=== PATIENT | male | born 1995 | race Caucasian/White ===

== ENCOUNTER 2021-04-20 10:22 | Emergency (ER) | payer BC, SELFPAY ==
--- NOTE | ~2021-04-20 | XR_ITS ---
EXAMINATION: XR CHEST CLINICAL INFORMATION: Shortness of breath COMPARISON: None TECHNIQUE: Frontal view of the chest was obtained. FINDINGS: No significant abnormality is noted involving the heart, lungs, mediastinum, bony thorax or soft tissues. XR/XR chest 1V IMPRESSION: Unremarkable examination.
[2021-04-20 10:51] VITALS: BP 180/104; PULSE 113; RESP 18; TEMP 36.7; O2SAT 98; BMI 40.6
--- NOTE | 2021-04-20 10:56 | ED.GENADULT ---
HPI - General Adult General Chief complaint: General Medical Stated complaint: hbp Time Seen by Provider: 04/20/21 10:55 Source: patient Mode of arrival: ambulatory Limitations: no limitations History of Present Illness HPI narrative: 25-year-old male past medical history significant for hypertension presents to the emergency department after being sent from Urgent Care for hypertension. He states he went to urgent care because he was having shortness of breath, runny nose, congestion, facial pressure X1 week. He states that they did a COVID test and took vital signs in the told them that he was COVID negative but his blood pressure was very high so he had to report to an emergency department. According to patient he used to be on hypertension medications when he was in the , however he never continued with these medications. He does not have a PCP. He denies headache, dizziness, vision changes, nausea, vomiting, abdominal pain, weakness. Onset (ago): week(s) (1) Radiation: non-radiation Severity: mild Quality: constant Relieving factors: none Exacerbating factors: none Associated symptoms: shortness of breath and other (rhinnorea, congestion ) Treatments prior to arrival: none Related Data Allergies Allergy/AdvReac Type Severity Reaction Status Date / Time No Known Allergies Allergy Unverified 02/20/20 17:11 [No Known Allergies*] Review of Systems Review of Systems: Constitutional : No Weight loss, No Fever, No Chills, No Fatigue, No Malaise ENT/Mouth : No sore throat, + Rhinorrhea, + facial pressure, +congestion Eyes: No Eye Pain, No Swelling, No Redness Cardiovascular : No Chest Pain, + SOB, No Dyspnea on Exertion, No Orthopnea, No Edema, No Palpitations Respiratory : No Cough, No Sputum, No Wheezing Gastrointestinal : No Nausea, No Vomiting, No Diarrhea, No Constipation, No abdominal Pain, No Hematochezia, No Melena Genitourinary : No Dysuria, No Urinary Frequency, No Hematuria, Musculoskeletal : No joint pain, No Myalgias, No Joint Swelling Skin : No Skin Lesions, No rash Neuro : No Weakness, No Numbness, No Dizziness, No Headache All other systems reviewed and are negative PMFSH Past Medical History Attestation statement: The following information was validated with the patient. Source: old records reviewed and nursing notes reviewed Social History Social History Advance Directives: No Advance Directives Information Provided: No Physical Exam Vital Signs: Vital Signs: Last Vital Signs Temp 98.0 F 04/20/21 10:51 Pulse 106 H 04/20/21 11:53 Resp 18 04/20/21 10:51 BP 151/95 H 04/20/21 11:53 Pulse Ox 98 04/20/21 10:51 Body Mass Index 40.6 Appearance: Alert.? Oriented X3.? No acute distress.? Head: Normocephalic, atraumatic, no step-offs or deformities Eyes: Pupils equal, round and reactive to light.? ENT: Pharynx normal.? Neck: Normal inspection.? Neck supple.? CVS: Normal heart rate and rhythm.? Pulses normal.? Respiratory: No respiratory distress.? + faint crackles to bilateral lower lobes Abdomen: Soft and nontender.? Skin: Skin warm and dry.? Normal skin color.? Normal skin turgor.? Extremities: No lower extremity edema.? No calf ttp. 5/5 strength to bilateral upper and lower extremities Back: No midline tenderness, no C-spine tenderness, full range of motion, no CVA tenderness bilaterally Neuro: Oriented X 3.? No motor deficit.? No sensory deficit. Course Reevaluation(s) Reevaluation #1: Chest x-ray negative. Flu/COVID/RSV pending. Patient continues to saturate 98% on room air. He appears comfortable and in no distress. I repeated BP it was 151/95. Time: 11:32 Reevaluation #2: Initial nasal swab could not be ran, a repeat nasal swab was done. At this time patient is safe for discharge home and will call him with positive results this is likely an upper respiratory infection. Chest x-ray was normal, pneumonia was ruled out. He has been advised that if it is flu/COVID/RSV he should quarantine. I have also told him to return to the emergency department with new or worsening symptoms. Time: 13:43 Medical Decision Making MDM Narrative Medical decision making narrative: [id number] 25-year-old male past medical history significant for hypertension presents the emergency department from urgent care where they were concerned for his blood pressure (150s/100s). Patient states he went to urgent care to get tested because he was experiencing upper respiratory symptoms times a week. He tested negative for COVID. He tells me that he used to be on hypertension medications when he was in the however he has not been taking them for a long time now. He denies vision changes, headache, dizziness, chest pain Upon physical examination there are faint crackles appreciated in bilateral lower lobes, S1-S2 appreciated, abdomen soft nontender nondistended. 5/5 strength upper and lower extremities. No focal neuro deficits. Pupils equal round and reactive to light. No pain with facial percussion or palpation. Negative bend over facial pressure. Patient appears well, he is in no acute distress. Vital signs are stable however he is hypertensive here in the emergency department his blood pressure is 180/104 his pulse was 113. Patient does mention he is a little nervous, anxious about his blood pressure. Plan at this time is to obtain a chest x-ray, flu/COVID/RSV. Imaging Data Chest x-ray: Attestation: I personally reviewed and interpreted this imaging study as follows: Radiologist's impression: FINDINGS: No significant abnormality is noted involving the heart, lungs, mediastinum, bony thorax or soft tissues. XR/XR chest 1V IMPRESSION: Unremarkable examination. Critical Care Time Critical Care Time Critical Care Time: No Discharge Plan Discharge Clinical Impression: Hypertension, Upper respiratory infection Patient Disposition: Home, Self-Care Instructions: Upper Respiratory Infection (ED), DASH Eating Plan (ED), Hypertension (ED) Additional Instructions: Drink plenty of fluids. Try to avoid caffeine, energy drinks, pre workout. Follow DASH diet low salts. Record your blood pressures a few times a week (monday, monday, monday in the morning), and share these with your primary care provider. I know you do not currently have a primary care provider however, I have given you a list of providers in the area that you think on making appointment with. Follow-up with your primary care provider this week. Return to the emergency department with new or worsening symptoms. In case of emergency call 911 Flu/COVID/RSV pending will call you only if results are positive. Referrals: Physician,None [Primary Care Provider] - 2 days Stand Alone Forms: Work/School Release
[2021-04-20 11:21] VITALS: BP 204/115; PULSE 111
[2021-04-20 11:53] VITALS: BP 151/95; PULSE 106
[2021-04-20] MEDS: Acetaminophen 325 MG TABLET 650 MG PO (14:08)
[2021-04-20 14:41] LABS: Influenza A PCR NEGATIVE (Negative); Influenza B PCR NEGATIVE (Negative); Resp Syncy Virus RNA Qual PCR NEGATIVE (Negative); SARS COV2 PCR INHOUSE NEGATIVE (Negative)
== END 2021-04-20 14:09 | disposition home or self-care (01) ==
LOC: HO.ED 11:22
PROVIDERS: Physician Assistant; Emergency Provider Emergency Medicine Emergency Medical Services
DX: J06.9 Acute upper respiratory infection, unspecified (principal); I10 Essential (primary) hypertension; Z20.822 Contact with and (suspected) exposure to COVID-19; Z79.899 Other long term (current) drug therapy
CPT/HCPCS: 0241U; 36415; 71045; 99283

== ENCOUNTER 2021-05-05 10:15 | Outpatient (REF) | payer BC, SELFPAY ==
[2021-05-05 10:33] LABS: MANUAL DIFF FLAG NO
[2021-05-05 10:43] LABS: Basophils Percent Auto 0.3 % (0-2); Eosinophils Absolute Auto 0.2 X10*3/uL (0.0-0.4); Eosinophils Percent Auto 2.3 % (0-4); Hematocrit 46.9 % (42.0-52.0); Hemoglobin 15.9 g/dl (14.0-18.0); Imm Gran Abs Auto 0.06 X10*3/uL (0.00-0.03); Imm Gran Pct Auto 0.7 % (0.0-0.4); Lymphocytes Absolute Auto 2.4 X10*3/uL (1.2-4.9); Lymphocytes Percent Auto 26.4 % (20-40); Mean Corpuscular HGB Conc 33.9 g/dl (31.0-36.0); Mean Corpuscular Hemoglobin 28.4 pg (27.0-33.0); Mean Corpuscular Volume 83.8 fL (80.0-98.0); Mean Platelet Volume 9.7 fL (9.4-12.4); Monocytes Absolute Auto 0.5 X10*3/uL (0.1-1.2); Monocytes Percent Auto 5.1 % (2-11); Neutrophils Percent Auto 65.2 % (45-73); Platelet Count 267 X10*3/uL (160-400); White Blood Count 9.1 X10*3/uL (4.8-10.8)
[2021-05-05 11:12] LABS: Alanine Aminotransferase 36 U/L (0-40); Albumin Level 4.6 g/dL (3.5-5.0); Alkaline Phosphatase 104 U/L (39-117); Anion Gap 16 (12-20); Aspartate Amino Transferase 23 U/L (5-37); Bilirubin Total 0.5 mg/dL (0.0-1.0); Blood Urea Nitrogen 8 mg/dL (9-16); Calcium 9.6 mg/dL (8.4-10.2); Carbon Dioxide 25 mmol/L (22-29); Chloride 103 mmol/L (96-108); Cholesterol 248 mg/dL; Estimated Glomerular Filt Rate > 60; Glucose Random 109 mg/dL (60-115); HDL Cholesterol 32 mg/dL; LDL Cholesterol Calculated 178 mg/dl; Potassium 4.1 mmol/L (3.3-5.1); Sodium 140 mmol/L (135-145); Total Protein 7.6 g/dL (6.5-8.0); Triglycerides 192 mg/dL
[2021-05-05 11:32] LABS: ~HepC Num1 0.04 S/CO (0.00-0.79); ~Hepatitis C Antibody Nonreactive (Nonreactive)
[2021-05-05 11:34] LABS: HIV AB/AG Nonreactive (Nonreactive); HIV Num 1 0.04 S/CO (0.00-0.99)
== END 2021-05-05 10:16 | disposition home or self-care (01) ==
LOC: HO.LAB 10:15
PROVIDERS: PCP Family Medicine; Visit Provider Family Medicine
DX: Z11.4 Encounter for screening for human immunodeficiency virus [HIV] (principal); Z11.59 Encounter for screening for other viral diseases; I10 Essential (primary) hypertension
CPT/HCPCS: 36415; 80053; 80061; 85025; 86803; 87389

== ENCOUNTER 2021-07-16 13:00 | Emergency (ER) | payer BC, SELFPAY ==
--- NOTE | ~2021-07-16 | CT_ITS ---
EXAMINATION: CT ABDOMEN AND PELVIS WITH CONTRAST CLINICAL INFORMATION: Left flank pain COMPARISON: None TECHNIQUE: Multidetector volumetric images were obtained from the superior aspect of the liver through the pubic symphysis following administration 85 mL of Omnipaque 350 intravenous contrast. Sagittal and coronal reformatted images were obtained on the technologist's workstation. Oral contrast: Yes This CT examination was performed using dose optimization techniques as appropriate, variously including the following: *Automated exposure control *Adjustment of mA and/or kV according to patient size (this includes techniques or standardized protocols for targeted exams where dose is matched to indication/reason for exam; i.e. extremities or head) *Use of iterative reconstruction technique DLP: 1194 mGy-cm FINDINGS: LUNG BASES: The visualized lung bases are unremarkable. LIVER, GALLBLADDER, AND BILIARY TREE: The liver is normal in size and shape. There is mild fatty infiltration of the liver. No focal hepatic lesion or biliary ductal dilatation is present. The gallbladder is unremarkable with no evidence of radiopaque gallstones, gallbladder wall thickening, or obvious pericholecystic inflammatory changes. PANCREAS: Unremarkable. SPLEEN: Unremarkable. ADRENAL GLANDS: Unremarkable. KIDNEYS AND URETERS: There is a 2 mm stone in the lower pole of the left kidney. The kidneys are otherwise unremarkable. No hydronephrosis is seen. No ureteral dilatation is seen. There is a small 2 to 3 mm stone in the bladder/left UVJ region. BLADDER: Small 2 to 3 mm left bladder stone. GASTROINTESTINAL TRACT: Mild diverticulosis of the colon. No evidence of diverticulitis. The small and large bowel are otherwise unremarkable. The appendix is unremarkable. ABDOMINAL WALL: Small umbilical hernia containing fat. LYMPH NODES: Normal. VASCULAR: Unremarkable. PELVIC VISCERA: Unremarkable. OSSEOUS STRUCTURES: Unremarkable. CT/CT abdomen pelvis w con IMPRESSION: Small 2 x 3 mm left UVJ or bladder stone. Small nonobstructing left renal stone. No hydronephrosis or ureteral dilatation. Fatty liver. Mild diverticulosis. Small umbilical hernia containing fat. Fleischner guidelines were followed.
[2021-07-16 13:57] VITALS: BP 137/81; PULSE 115; RESP 18; TEMP 36.1; O2SAT 95; BMI 44.0
[2021-07-16 14:18] LABS: MANUAL DIFF FLAG NO
[2021-07-16 14:23] LABS: Basophils Percent Auto 0.3 % (0-2); Eosinophils Absolute Auto 0.1 X10*3/uL (0.0-0.4); Hematocrit 42.1 % (42.0-52.0); Hemoglobin 14.5 g/dl (14.0-18.0); Imm Gran Pct Auto 0.9 % (0.0-0.4); Mean Corpuscular HGB Conc 34.4 g/dl (31.0-36.0); Mean Corpuscular Hemoglobin 28.3 pg (27.0-33.0); Mean Corpuscular Volume 82.2 fL (80.0-98.0); Mean Platelet Volume 9.8 fL (9.4-12.4); Monocytes Absolute Auto 0.7 X10*3/uL (0.1-1.2); Monocytes Percent Auto 6.1 % (2-11); Neutrophils Absolute Auto 8.1 x10*3/uL (2.0-8.3); Neutrophils Percent Auto 73.7 % (45-73); Platelet Count 275 X10*3/uL (160-400); Red Blood Count 5.12 X10*6/uL (4.60-5.80); Red Cell Distribution Width 12.8 % (11.0-16.0)
[2021-07-16 14:24] LABS: Appearance Urine HAZY; Color Urine YELLOW; Glucose Urine UA NEG (NEG); Leukocyte Esterase Urine 1+ (NEG); Nitrite Urine NEG (NEG); Specific Gravity - Urine 1.025 (1.005-1.025); UACC Culture Trigger YES; Urine Blood 3+ (NEG); Urine Ketones 5 MG/DL (NEG); Urine Protein TRACE MG/DL (NEG-TRACE)
[2021-07-16 14:36] LABS: Alanine Aminotransferase 49 U/L (0-40); Albumin Level 4.6 g/dL (3.5-5.0); Alkaline Phosphatase 106 U/L (39-117); Anion Gap 17 (12-20); Aspartate Amino Transferase 28 U/L (5-37); Bilirubin Total 0.4 mg/dL (0.0-1.0); Blood Urea Nitrogen 11 mg/dL (9-16); Calcium 9.8 mg/dL (8.4-10.2); Carbon Dioxide 24 mmol/L (22-29); Chloride 104 mmol/L (96-108); Creatinine Clr Calc Pharmacy 167.2; Estimated Glomerular Filt Rate > 60; Glucose Random 113 mg/dL (60-115); Potassium 3.6 mmol/L (3.3-5.1); Sodium 141 mmol/L (135-145); Total Protein 7.6 g/dL (6.5-8.0)
[2021-07-16 14:41] LABS: RBC Urine 30-49 /HPF (0); Squamous Epithelial Cell Urine 1+ /LPF
[2021-07-16 14:42] LABS: Calcium Oxalate Crystals Urine TRACE /LPF
[2021-07-16 14:49] VITALS: RESP 17
[2021-07-16] MEDS: Morphine Sulfate 4 MG/ML CARTRIDGE IVPUSH (14:49)
[2021-07-16] MEDS: ondansetron HCL 4 MG/2 ML VIAL IVPUSH (14:49)
[2021-07-16] MEDS: 0.9 % Sodium Chloride 1,000 ML 999 ML IV (14:50)
[2021-07-16] MEDS: iohexoL 350 MG/ML 100 ML INFUS..BTL IV (15:13)
[2021-07-16 15:37] VITALS: RESP 18
--- NOTE | 2021-07-16 16:40 | ED_ITS ---
HPI - Abdominal Pain General Chief Complaint: Abdominal Pain Stated Complaint: LOWER L BACK PAIN Time Seen by Provider: 07/16/21 14:05 Source: patient Mode of arrival: ambulatory Limitations: no limitations History of Present Illness HPI narrative: 25-year-old male with left flank pain that began at 11:30. Patient works a computer technology trainer, and he was napping, pain was sudden and woke him up. He vomited from the pain. He feels crampy in his lower abdomen. The pain is constant, and worsening. He was crying due to pain. Pain was 8/10, is now a 6/10. Denies testicular pain. Denies dysuria, hematuria, fever, abnormal bowel movements, abdominal surgeries. No prior history of kidney stone. Patient is vaccinated for COVID. Related Data Previous Rx's Medication Instructions Recorded ketorolac 10 mg tablet 10 mg PO TID 5 Days #15 tab 07/16/21 ketorolac 10 mg tablet 10 mg PO TID 5 Days #15 tab 07/16/21 levofloxacin 750 mg tablet 750 mg PO DAILY 5 Days #5 tab 07/16/21 levofloxacin 750 mg tablet 750 mg PO DAILY 5 Days #5 tab 07/16/21 ondansetron 4 mg disintegrating 4 mg PO Q8H PRN #9 tab 07/16/21 tablet prednisone 20 mg tablet 20 mg PO DAILY 3 Days #3 tab 07/16/21 prednisone 20 mg tablet 20 mg PO DAILY 3 Days #3 tab 07/16/21 tamsulosin 0.4 mg capsule 0.4 mg PO DAILY 14 Days #14 cap 07/16/21 tamsulosin 0.4 mg capsule 0.4 mg PO DAILY 14 Days #14 cap 07/16/21 Allergies Allergy/AdvReac Type Severity Reaction Status Date / Time No Known Allergies Allergy Verified 07/16/21 13:59 [No Known Allergies*] Review of Systems Constitutional: Denies body ache(s), Denies chills, Denies fatigue, Denies fever(s), Denies headache(s), Denies malaise and Denies weakness Eyes: Denies diplopia Denies vertigo, Denies dizziness, Denies headache(s) and Denies throat swelling Cardiovascular: Denies chest pain, Denies syncope, Denies leg edema, Denies lightheadedness, Denies Loss of Consciousness, Denies palpitations and Denies dyspnea Respiratory: Denies chest congestion, Denies cough and Denies dyspnea Gastrointestinal: Reports abdominal pain, Denies hematochezia, Denies tenesmus, Denies coffee ground emesis, Denies constipation, Denies fecal incontinence, Denies diarrhea, Reports nausea and Reports vomiting Genitourinary: Denies hematuria, Denies genital pain, Denies dysuria, Reports flank pain, Denies penile discharge, Denies scrotal swelling, Denies testicular mass, Denies testicular pain, Denies urinary frequency, Denies urinary incontinence and Denies urinary urgency Musculoskeletal: Reports no additional musculoskeletal complaints Denies confusion, Denies vertigo, Denies dizziness, Denies syncope, Denies headache(s) and Denies weakness Psychiatric: Denies anxiety, Denies confusion and Denies depression Endocrine: Denies fatigue and Denies palpitations Allergic/Immunologic: Denies throat swelling Physical Exam Vital Signs: Vital Signs: Last Vital Signs Temp 97.0 F 07/16/21 13:57 Pulse 115 H 07/16/21 13:57 Resp 18 07/16/21 15:37 BP 137/81 07/16/21 13:57 Pulse Ox 95 07/16/21 13:57 BMI result Body Mass Index 44.0 Const: General: No confusion Nutritional Appearance: well nourished Orientation/consciousness: No confusion Limitations: no limitations Eyes: Conjunctivae: conjunctivae normal Pupils: Equal, round and reactive pupils present EOM: EOMs intact bilaterally Neck: Neck: Yes full ROM, Yes no lymphadenopathy and Yes supple Resp: Effort & Inspection: normal respiratory effort and able to speak in complete sentences Auscultation: clear to auscultation bilaterally, no crackles, no rales, no rhonchi and no wheezes Cardio: Rate: regular rate Rhythm: regular rhythm Heart sounds: S1 normal heart sound present and S2 normal heart sound present GI: Inspection: Yes normal to inspection Palpation (GI): Soft to palpation, Tenderness to palpation present (GI) (lower abdomen), no guarding and not rigid Percussion: Yes normal to percussion Auscultation: normal bowel sounds : General: Yes CVA tenderness on the left Back/Spine/Pelvis: Back: CVA tenderness Skin: General skin exam: no rashes or lesions noted Neuro: General: No confusion Cranial nerves: Yes Equal, round and reactive pupils present Extrem: General: Yes normal to inspection and Yes full ROM Psych: Appearance: grossly normal Affect: normal affect Attitude: cooperative Thought process: Normal thought process present Course Course Course Narrative: 25-year-old male with left flank pain that started today. On exam, patient has mild left-sided CVA tenderness, labs showed leukocytosis of 11, urine shows leukocyte esterase. CT shows nonobstructing 2 x 3 mm stone in the left UVJ, no hydronephrosis not, no perinephro fat stranding. Will treat UTI with Levaquin, gave ketorolac, prednisone, Flomax, Zofran, referred to Urology Gave return precautions of worsening flank pain, fevers, vomiting A patient's questions were answered, patient verbalized agreement understanding of the plan. CT/CT abdomen pelvis w con IMPRESSION: Small 2 x 3 mm left UVJ or bladder stone. Small nonobstructing left renal stone. No hydronephrosis or ureteral dilatation. Fatty liver. Mild diverticulosis. Small umbilical hernia containing fat. MDM - Abdominal Pain Lab Data Result diagrams: 07/16/21 14:09 07/16/21 14:09 Labs: Lab Results 07/16/21 07/16/21 07/16/21 Range/Units 14:09 14:09 14:09 WBC 11.0 H (4.8-10.8) X10*3/uL RBC 5.12 (4.60-5.80) X10*6/uL Hgb 14.5 (14.0-18.0) g/dl Hct 42.1 (42.0-52.0) % MCV 82.2 (80.0-98.0) fL MCH 28.3 (27.0-33.0) pg MCHC 34.4 (31.0-36.0) g/dl RDW 12.8 (11.0-16.0) % Plt Count 275 (160-400) X10*3/uL MPV 9.8 (9.4-12.4) fL Immature Gran % (Auto) 0.9 H (0.0-0.4) % Neut % (Auto) 73.7 H (45-73) % Lymph % (Auto) 18.0 L (20-40) % [place] % (Auto) 6.1 (2-11) % Eos % (Auto) 1.0 (0-4) % Baso % (Auto) 0.3 (0-2) % Lymph # (Auto) 2.0 (1.2-4.9) X10*3/uL [place] # (Auto) 0.7 (0.1-1.2) X10*3/uL Eos # (Auto) 0.1 (0.0-0.4) X10*3/uL Baso # (Auto) 0.0 (0.0-0.2) X10*3/uL Abs Immat Gran (auto) 0.10 H (0.00-0.03) X10*3/uL Absolute Neuts (auto) 8.1 (2.0-8.3) x10*3/uL Absolute Nucleated RBC 0.000 (0.0-0.012) X10*3/uL Nucleated RBC % (auto) 0.0 (0.0-0.2) /100WBC Sodium 141 (135-145) mmol/L Potassium 3.6 (3.3-5.1) mmol/L Chloride 104 (96-108) mmol/L Carbon Dioxide 24 (22-29) mmol/L Anion Gap 17 (12-20) BUN 11 (9-16) mg/dL Creatinine 0.99 (0.5-1.4) mg/dL Estim Creat Clear Calc 167.2 Estimated GFR > 60 Random Glucose 113 (60-115) mg/dL Calcium 9.8 (8.4-10.2) mg/dL Total Bilirubin 0.4 (0.0-1.0) mg/dL AST 28 (5-37) U/L ALT 49 H (0-40) U/L Alkaline Phosphatase 106 (39-117) U/L Total Protein 7.6 (6.5-8.0) g/dL Albumin 4.6 (3.5-5.0) g/dL Urine Color YELLOW Urine Appearance HAZY Urine pH 6.0 (5.0-8.0) Ur Specific [place] 1.025 (1.005-1.025) Urine Protein TRACE (NEG-TRACE) MG/DL Urine Glucose (UA) NEG (NEG) MG/DL Urine Ketones 5 (NEG) MG/DL Urine Blood 3+ H (NEG) Urine Nitrite NEG (NEG) Ur Leukocyte Esterase 1+ H (NEG) Urine RBC 30-49 H (0) /HPF Urine WBC 1-4 (0-4) /HPF Ur Squamous Epith Cells 1+ /LPF Calcium Oxalate Crystal TRACE /LPF Urine Bacteria NONE /LPF Urine Mucus NONE /LPF Discharge Plan Discharge Clinical Impression: Calculus of kidney, Acute UTI Patient Disposition: Home, Self-Care Instructions: Kidney Stones (ED), How to Strain Your Urine (ED) Additional Instructions: Please call Urology Monday morning at the following phone number: [phone] Please fill your spur prescription for Levaquin, this is your antibiotic. You will also be receiving ketorolac, this is the pain medication that is like ibuprofen. Do not take any ibuprofen containing products when you are taking it. You also receive Tamulosin, this is the old man medicine we discussed, will help you urinate. You will also receive ondansetron, this is to be used for nausea. You also received a prescription for 3 days of prednisone, this is another anti-inflammatory. If you have worsening flank pain, fevers, vomiting, please return to the emergency room. Prescriptions: New prednisone 20 mg tablet 20 mg PO DAILY 3 Days Qty: 3 0RF ketorolac 10 mg tablet 10 mg PO TID 5 Days Qty: 15 0RF tamsulosin 0.4 mg capsule 0.4 mg PO DAILY 14 Days Qty: 14 0RF levofloxacin 750 mg tablet 750 mg PO DAILY 5 Days Qty: 5 0RF prednisone 20 mg tablet 20 mg PO DAILY 3 Days Qty: 3 0RF ondansetron 4 mg tablet,disintegrating 4 mg PO Q8H PRN (Reason: nausea and vomiting) Qty: 9 0RF tamsulosin 0.4 mg capsule 0.4 mg PO DAILY 14 Days Qty: 14 0RF ketorolac 10 mg tablet 10 mg PO TID 5 Days Qty: 15 0RF levofloxacin 750 mg tablet 750 mg PO DAILY 5 Days Qty: 5 0RF Referrals: Osiel Glynn MD [Physician] - 2 days [facility] Past Medical History Medical History (Updated 07/16/21 @ 16:55 by SHEA Cope) High blood pressure Social History Social History Advance Directives: No Advance Directives Information Provided: No
[2021-07-16] MEDS: Ketorolac Tromethamine 15 MG/ML VIAL IVPUSH (17:00)
== END 2021-07-16 17:13 | disposition home or self-care (01) ==
PROVIDERS: Emergency Provider Emergency Medicine Emergency Medical Services; PCP Family Medicine
DX: N20.0 Calculus of kidney (principal); N39.0 Urinary tract infection, site not specified; R10.9 Unspecified abdominal pain
CPT/HCPCS: 36415; 74177; 80053; 81001; 85025; 87086; 96361; 96374; 96375; 99283; 99284; J1885; J2270; J2405; Q9967

== ENCOUNTER 2023-10-11 08:03 | Outpatient (REF) | payer BC, SELFPAY ==
[2023-10-11 08:12] LABS: MANUAL DIFF FLAG NO
[2023-10-11 08:30] LABS: Basophils Absolute Auto 0.1 X10*3/uL (0.0-0.2); Basophils Percent Auto 0.7 % (0-2); Eosinophils Absolute Auto 0.3 X10*3/uL (0.0-0.4); Hematocrit 46.4 % (42.0-52.0); Hemoglobin 15.9 g/dl (14.0-18.0); Imm Gran Abs Auto 0.08 X10*3/uL (0.00-0.03); Imm Gran Pct Auto 0.9 % (0.0-0.4); Lymphocytes Absolute Auto 2.7 X10*3/uL (1.2-4.9); Lymphocytes Percent Auto 29.8 % (20-40); Mean Corpuscular HGB Conc 34.3 g/dl (31.0-36.0); Mean Corpuscular Hemoglobin 28.9 pg (27.0-33.0); Mean Corpuscular Volume 84.2 fL (80.0-98.0); Mean Platelet Volume 10.3 fL (9.4-12.4); Monocytes Absolute Auto 0.5 X10*3/uL (0.1-1.2); Monocytes Percent Auto 5.4 % (2-11); Neutrophils Absolute Auto 5.5 x10*3/uL (2.0-8.3); Neutrophils Percent Auto 60.2 % (45-73); Platelet Count 256 X10*3/uL (160-400); Red Blood Count 5.51 X10*6/uL (4.60-5.80); Red Cell Distribution Width 12.8 % (11.0-16.0); White Blood Count 9.1 X10*3/uL (4.8-10.8)
[2023-10-11 09:19] LABS: Alanine Aminotransferase 43 U/L (0-40); Albumin Level 4.5 g/dL (3.5-5.0); Alkaline Phosphatase 108 U/L (39-117); Anion Gap 16 (12-20); Aspartate Amino Transferase 31 U/L (5-37); Bilirubin Total 0.3 mg/dL (0.0-1.0); Blood Urea Nitrogen 7 mg/dL (9-16); Calcium 9.2 mg/dL (8.4-10.2); Carbon Dioxide 25 mmol/L (22-29); Chloride 103 mmol/L (96-108); Cholesterol 214 mg/dL (<200); Estimated Glomerular Filt Rate > 60; Glucose Random 115 mg/dL (60-115); HDL Cholesterol 33 mg/dL (>40); LDL Cholesterol Calculated 133 mg/dL (<100); Potassium 3.4 mmol/L (3.3-5.1); Sodium 141 mmol/L (135-145); Total Protein 7.7 g/dL (6.5-8.0); Triglycerides 244 mg/dL (<150)
[2023-10-11 09:35] LABS: Thyroid Stimulating Hormone 1.66 uIU/mL (0.32-4.0)
[2023-10-15 17:33] LABS: Testosterone, Free 81.2 pg/mL (35.0-155.0); Testosterone, Total 682 ng/dL (250-1100)
== END 2023-10-11 08:04 | disposition home or self-care (01) ==
LOC: HO.LAB 08:03
PROVIDERS: Visit Provider Family Medicine
DX: E78.00 Pure hypercholesterolemia, unspecified (principal); R53.81 Other malaise; R53.83 Other fatigue
CPT/HCPCS: 36415; 80053; 80061; 84402; 84403; 84443; 85025

== ENCOUNTER 2023-12-01 20:38 | Emergency (ER) | payer BC, SELFPAY ==
--- NOTE | ~2023-12-01 | CT_ITS ---
EXAMINATION: CT HEAD WITHOUT CONTRAST CLINICAL INFORMATION: Accelerated hypertension. Headache. COMPARISON: None available. TECHNIQUE: Contiguous axial imaging was performed from the skull base to vertex without intravenous administration of contrast. This CT examination was performed using dose optimization techniques as appropriate, variously including the following: *Automated exposure control *Adjustment of mA and/or kV according to patient size (this includes techniques or standardized protocols for targeted exams where dose is matched to indication/reason for exam; i.e. extremities or head) *Use of iterative reconstruction technique DLP: 972 mGy-cm FINDINGS: There is no acute intracranial hemorrhage. There is no evidence of acute/subacute cerebral or cerebellar infarction. There is no midline shift or mass effect. No extra-axial fluid collection. The ventricles are normal in size. The orbits are symmetric and within normal limits. The visualized paranasal sinuses are well aerated. The mastoid air cells are clear. CT/CT head/brain wo IV con IMPRESSION: No acute intracranial pathology.
[2023-12-01 20:40] VITALS: BP 171/109; PULSE 114; RESP 18; TEMP 36.9; O2SAT 96; BMI 45.4
--- NOTE | 2023-12-01 20:45 | ED.GENADULT ---
HPI - General Adult General Chief complaint: General Medical Stated complaint: Hypertension, sent by work Time Seen by Provider: 12/01/23 21:15 Source: patient Mode of arrival: ambulatory Limitations: no limitations History of Present Illness ED Provider: stacie NAVARRO narrative: Patient with History of hypertension for last 3 -4 years taking amlodipine 10 mg daily patient missed the dose yesterday complaining of occipital headache since 19:00 no nausea no vomiting no chest pain feels beating fast and stronger no change in sensorium patient has checked his blood pressure at work was 180/124 on arrival it is 160/115 patient also does have questionable sleep apnea pending studies Related Data Previous Rx's ?Medication ?Instructions ?Recorded ketorolac 10 mg tablet 10 mg PO TID 5 days #15 tabs 07/16/21 ketorolac 10 mg tablet 10 mg PO TID pain 5 days #15 tabs 07/16/21 levofloxacin 750 mg tablet 750 mg PO DAILY 5 days #5 tabs 07/16/21 levofloxacin 750 mg tablet 750 mg PO DAILY 5 days #5 tabs 07/16/21 ondansetron 4 mg disintegrating 4 mg PO Q8H PRN nausea and 07/16/21 tablet vomiting #9 tabs prednisone 20 mg tablet 20 mg PO DAILY 3 days #3 tabs 07/16/21 prednisone 20 mg tablet 20 mg PO DAILY 3 days #3 tabs 07/16/21 tamsulosin 0.4 mg capsule 0.4 mg PO DAILY 14 days #14 caps 07/16/21 tamsulosin 0.4 mg capsule 0.4 mg PO DAILY 14 days #14 caps 07/16/21 Allergies Allergy/AdvReac Type Severity Reaction Status Date / Time No Known Allergies Allergy Verified 12/01/23 20:44 [No Known Allergies*] Review of Systems Review of Systems: Yes all other systems are reviewed and are negative PMFSH Past Medical History Medical History High blood pressure Social History Social History Advance Directives: No Advance Directives Information Provided: No Do you have a plan to hurt others: No Plan Physical Exam ED Vital Signs: Vital Signs - 24 hr 12/01/23 20:40 12/01/23 21:04 12/01/23 21:37 Temperature 98.5 F 98.7 F Pulse Rate 114 H 116 H 112 H Respiratory Rate 18 14 Blood Pressure 171/109 H 160/115 H 167/112 H Pulse Oximetry 96 97 Oxygen Delivery Method Room Air Room Air 12/01/23 21:37 Temperature Pulse Rate Respiratory Rate Blood Pressure 167/112 H Pulse Oximetry Oxygen Delivery Method BMI result Body Mass Index 45.4 Appearance: Alert. Oriented X3. No acute distress. Eyes: PERRLA, No Nystagmus ENT: Pharynx normal. Oral Mucosa moist Neck: Normal inspection. Neck supple. CVS: Normal heart rate and rhythm. Pulses normal. Respiratory: No respiratory distress. Equal air entry bilateral, no wheezing/rales/rhonchi Abdomen: Soft and nontender. Bowel sounds are present, no mass palpable, no CVA tenderness Skin: Skin warm and dry. Normal skin color. Normal skin turgor. Extremities: No lower extremity edema. No calf tenderness Neuro: Oriented X 3. No motor deficit. No sensory deficit.No cerebellar signs , cranial nerves II-XII intact Course Course Course Narrative: RME performed by Lorna Vasquez PA-C. Patient is a 27 year old assigned male at presenting to the emergency department with elevated blood pressure. Patient states he has a history of HTN and is on a medication which he has not taken today. Detailed physical exam and review of systems are deferred to the intake clinician. EKG and labs ordered. Patient placed back in the waiting room pending room availability and results. Medications Administered Discontinued Medications Generic Name Dose Route Start Last Admin Trade Name Freq PRN Reason Stop Dose Admin Amlodipine Besylate 10 mg 12/01/23 21:20 12/01/23 21:37 Amlodipine Besylate 10 Mg Tablet PO 12/01/23 21:21 10 mg ONCE ONE Administration Protocol Metoprolol Tartrate 50 mg 12/01/23 21:25 12/01/23 21:37 Metoprolol Tartrate 50 Mg Tablet PO 12/01/23 21:26 50 mg ONCE ONE Administration Protocol Medical Decision Making Medical Decision Making [facility] Narrative: Patient with accelerated hypertension with headache CT scan negative for acute labs are stable patient was given amlodipine and metoprolol 50 mg blood pressure improved to 154/104 headache improved also will discharge patient home advised to continue take his amlodipine daily Check blood pressure before the medication and after 12 hours and follow up with PCP Differential Diagnosis Differential Diagnoses: The differential diagnosis associated with the presentation includes Subarachnoid bleed/subdural bleed/CVA Lab Data MDM Lab Attestation statement: I reviewed the patient's lab results. 12/01/23 21:15 12/01/23 21:15 Labs: Lab Results 12/01/23 Range/Units 21:15 WBC 11.5 H (4.8-10.8) X10*3/uL RBC 5.69 (4.60-5.80) X10*6/uL Hgb 16.5 (14.0-18.0) g/dl Hct 47.0 (42.0-52.0) % MCV 82.6 (80.0-98.0) fL MCH 29.0 (27.0-33.0) pg MCHC 35.1 (31.0-36.0) g/dl RDW 12.8 (11.0-16.0) % Plt Count 266 (160-400) X10*3/uL MPV 9.9 (9.4-12.4) fL Immature Gran % (Auto) 0.6 H (0.0-0.4) % Neut % (Auto) 67.6 (45-73) % Lymph % (Auto) 22.8 (20-40) % Tift % (Auto) 6.9 (2-11) % Eos % (Auto) 1.6 (0-4) % Baso % (Auto) 0.5 (0-2) % Lymph # (Auto) 2.6 (1.2-4.9) X10*3/uL Tift # (Auto) 0.8 (0.1-1.2) X10*3/uL Eos # (Auto) 0.2 (0.0-0.4) X10*3/uL Baso # (Auto) 0.1 (0.0-0.2) X10*3/uL Abs Immat Gran (auto) 0.07 H (0.00-0.03) X10*3/uL Absolute Neuts (auto) 7.8 (2.0-8.3) x10*3/uL Absolute Nucleated RBC 0.000 (0.0-0.012) X10*3/uL Nucleated RBC % (auto) 0.0 (0.0-0.2) /100WBC Sodium 139 (135-145) mmol/L Potassium 3.4 (3.3-5.1) mmol/L Chloride 103 (96-108) mmol/L Carbon Dioxide 23 (22-29) mmol/L Anion Gap 16 (12-20) BUN 10 (9-16) mg/dL Creatinine 0.81 (0.5-1.4) mg/dL Estim Creat Clear Calc 204.3 Estimated GFR > 60 Random Glucose 131 H (60-115) mg/dL Calcium 9.7 (8.4-10.2) mg/dL Total Bilirubin 0.5 (0.0-1.0) mg/dL AST 27 (5-37) U/L ALT 44 H (0-40) U/L Alkaline Phosphatase 97 (39-117) U/L Troponin I High Sens < 2.7 (<3.5-35.0) ng/L Total Protein 8.3 H (6.5-8.0) g/dL Albumin 4.7 (3.5-5.0) g/dL Independent Interpretation I performed an independent interpretation of an: EKG Interpretation: Sinus tachycardia LVH heart rate 108 beats per minute normal axis no acute ST T wave changes no acute ischemia Discharge Plan Discharge Clinical Impression: Hypertension, uncontrolled Patient Disposition: Home, Self-Care Instructions: Hypertension (ED) Additional Instructions: Take blood pressure medicine daily on time Check blood pressure twice a day Normal blood pressure should be less than 135/85 Follow with your PCP Prescriptions: No Action prednisone 20 mg tablet 20 mg PO DAILY 3 Days Qty: 3 0RF ketorolac 10 mg tablet 10 mg PO TID 5 Days Qty: 15 0RF tamsulosin 0.4 mg capsule 0.4 mg PO DAILY 14 Days Qty: 14 0RF levofloxacin 750 mg tablet 750 mg PO DAILY 5 Days Qty: 5 0RF prednisone 20 mg tablet 20 mg PO DAILY 3 Days Qty: 3 0RF ondansetron 4 mg tablet,disintegrating 4 mg PO Q8H PRN (Reason: nausea and vomiting) Qty: 9 0RF tamsulosin 0.4 mg capsule 0.4 mg PO DAILY 14 Days Qty: 14 0RF ketorolac 10 mg tablet 10 mg PO TID 5 Days Qty: 15 0RF levofloxacin 750 mg tablet 750 mg PO DAILY 5 Days Qty: 5 0RF Print Language: [place]
--- NOTE | 2023-12-01 20:46 | ECG_ITS ---
Test Reason : HEART PALPATION Blood Pressure : / mmHG Vent. Rate : 108 BPM Atrial Rate : 108 BPM P-R Int : 164 ms QRS Dur : 074 ms QT Int : 332 ms P-R-T Axes : 021 000 028 degrees QTc Int : 444 ms Sinus tachycardia Minimal voltage criteria for LVH, may be normal variant ( R in aVL ) Nonspecific ST and T wave abnormality Abnormal ECG No previous ECGs available Referred By: Lorna Vasquez Electronically Signed By:JAE RAMIREZ MD
[2023-12-01 21:04] VITALS: BP 160/115; PULSE 116; RESP 14; TEMP 37.1; O2SAT 97
[2023-12-01 21:19] LABS: MANUAL DIFF FLAG NO
[2023-12-01 21:24] LABS: Basophils Absolute Auto 0.1 X10*3/uL (0.0-0.2); Basophils Percent Auto 0.5 % (0-2); Eosinophils Absolute Auto 0.2 X10*3/uL (0.0-0.4); Eosinophils Percent Auto 1.6 % (0-4); Hemoglobin 16.5 g/dl (14.0-18.0); Imm Gran Abs Auto 0.07 X10*3/uL (0.00-0.03); Imm Gran Pct Auto 0.6 % (0.0-0.4); Lymphocytes Absolute Auto 2.6 X10*3/uL (1.2-4.9); Lymphocytes Percent Auto 22.8 % (20-40); Mean Corpuscular HGB Conc 35.1 g/dl (31.0-36.0); Mean Corpuscular Volume 82.6 fL (80.0-98.0); Mean Platelet Volume 9.9 fL (9.4-12.4); Monocytes Absolute Auto 0.8 X10*3/uL (0.1-1.2); Monocytes Percent Auto 6.9 % (2-11); Neutrophils Absolute Auto 7.8 x10*3/uL (2.0-8.3); Neutrophils Percent Auto 67.6 % (45-73); Platelet Count 266 X10*3/uL (160-400); Red Blood Count 5.69 X10*6/uL (4.60-5.80); Red Cell Distribution Width 12.8 % (11.0-16.0); White Blood Count 11.5 X10*3/uL (4.8-10.8)
[2023-12-01 21:37] VITALS: BP 167/112; PULSE 112
[2023-12-01 21:37] LABS: Alanine Aminotransferase 44 U/L (0-40); Albumin Level 4.7 g/dL (3.5-5.0); Alkaline Phosphatase 97 U/L (39-117); Anion Gap 16 (12-20); Aspartate Amino Transferase 27 U/L (5-37); Bilirubin Total 0.5 mg/dL (0.0-1.0); Blood Urea Nitrogen 10 mg/dL (9-16); Calcium 9.7 mg/dL (8.4-10.2); Carbon Dioxide 23 mmol/L (22-29); Chloride 103 mmol/L (96-108); Creatinine Clr Calc Pharmacy 204.3; Estimated Glomerular Filt Rate > 60; Glucose Random 131 mg/dL (60-115); Potassium 3.4 mmol/L (3.3-5.1); Sodium 139 mmol/L (135-145); Total Protein 8.3 g/dL (6.5-8.0)
[2023-12-01] MEDS: Metoprolol Tartrate 50 MG TABLET PO (21:37)
[2023-12-01] MEDS: amLODIPine Besylate 10 MG TABLET PO (21:37)
[2023-12-01 21:47] LABS: Troponin-I High Sensitivity < 2.7 ng/L (<3.5-35.0)
[2023-12-01 22:42] VITALS: BP 158/106; PULSE 94; RESP 12; TEMP 36.4; O2SAT 96
== END 2023-12-01 23:00 | disposition home or self-care (01) ==
PROVIDERS: Physician Assistant Medical; Emergency Provider Internal Medicine
DX: R51.9 Headache, unspecified (principal); I10 Essential (primary) hypertension; R00.0 Tachycardia, unspecified; R00.2 Palpitations; Z79.899 Other long term (current) drug therapy
CPT/HCPCS: 36415; 70450; 80053; 84484; 85025; 93005; 99284

== ENCOUNTER → 2023-12-01 20:46 | Outpatient (BNV) | payer BC, SELFPAY | PROVIDERS: Emergency Provider Internal Medicine; Visit Provider Internal Medicine Cardiovascular Disease | DX: R00.0 Tachycardia, unspecified (principal) | CPT/HCPCS: 93010 ==